=== PATIENT | male | born 1965 | race Two or more races ===

== ENCOUNTER 2020-05-20 15:16 | Inpatient (IN) | payer OTHER ==
[~2020-05-20] VITALS: Ht 165.1 cm; Wt 74.5 kg
[2020-05-20 15:54] LABS: Basophils # (auto) 0.1 10 ^3/uL (0-0.2); Basophils % (auto) 0.8 % (0.0-2.0); Eosinophils # (auto) 0.4 10 ^3/uL (0-0.8); Eosinophils % (auto) 3.6 % (0.0-7.0); Hematocrit 51.2 % (41.0-53.0); Hemoglobin 17.2 g/dL (13.5-17.5); Lymphocytes # (auto) 2.8 10 ^3/uL (0.4-5.4); Lymphocytes % (auto) 26.4 % (10.0-50.0); Mean Corpuscular Hemoglobin 29.8 pg (28.0-32.0); Mean Corpuscular Hgb Conc. 33.5 g/dL (32.0-36.0); Mean Corpuscular Volume 88.9 fL (80.0-100.0); Monocytes # (auto) 0.8 10 ^3/uL (0-1.3); Monocytes % (auto) 7.7 % (0.0-12.0); Neutrophils # (auto) 6.4 10 ^3/uL (1.6-8.6); Neutrophils % (auto) 61.5 % (37.0-80.0); Nucleated Red Blood Cells % 0.1 %; Platelet Count (auto) 240 10^3/uL (140-450); Red Blood Cells 5.76 10^6/uL (4.5-5.90); Red Cell Distribution Width 15.3 % (11.8-14.3); White Blood Cell 10.5 10^3/uL (4.4-10.8)
[2020-05-20 16:16] LABS: Albumin 4.2 g/dL (3.4-5.0); BUN/Creatinine Ratio 10.3; Bilirubin, Total 0.4 mg/dL (0.2-1.0); Total Protein 8.4 g/dL (6.4-8.2)
[2020-05-20 16:28] LABS: INR 0.97 (0.9-1.15); Partial Thromboplastin Time 27.9 sec (23.0-31.2)
[2020-05-20] MEDS ORDERED: NITROGLYCERIN 0.4 MG SL TAB SL PRN (18:00)
[2020-05-20] MEDS ORDERED: MORPHINE SULF INJ 2 MG/ML SYRINGE 1ML IV PRN (18:00)
[2020-05-20] MEDS ORDERED: SOD CHL 0.45% 1,000 ML IV ONE (18:00)
[2020-05-20] MEDS ORDERED: ONDANSETRON HCL 4 MG/2 ML VIAL IV PRN (18:00)
[2020-05-20 20:20] VITALS: BP 132/72
[2020-05-20 22:00] VITALS: BP 132/70
[2020-05-20] MEDS: PANTOPRAZOLE 40 MG/10 ML VIAL INJ IV SCH (22:39)
[2020-05-20 23:19] LABS: Urine WBC None Seen /hpf (0 - 3)
[2020-05-20 23:34] LABS: Urine Bacteria NONE SEEN /hpf (None Seen); Urine Blood Negative /uL (Negative); Urine Specific Gravity 1.009 (1.001-1.035)
[2020-05-21 05:00] VITALS: BP 123/69
[2020-05-21 07:33] LABS: Basophils # (auto) 0.1 10 ^3/uL (0-0.2); Basophils % (auto) 0.6 % (0.0-2.0); Eosinophils # (auto) 0.2 10 ^3/uL (0-0.8); Hematocrit 45.6 % (41.0-53.0); Hemoglobin 15.6 g/dL (13.5-17.5); Lymphocytes # (auto) 2.1 10 ^3/uL (0.4-5.4); Lymphocytes % (auto) 22.5 % (10.0-50.0); Mean Corpuscular Hgb Conc. 34.3 g/dL (32.0-36.0); Mean Corpuscular Volume 87.5 fL (80.0-100.0); Monocytes # (auto) 0.6 10 ^3/uL (0-1.3); Monocytes % (auto) 6.8 % (0.0-12.0); Neutrophils # (auto) 6.2 10 ^3/uL (1.6-8.6); Neutrophils % (auto) 68.1 % (37.0-80.0); Nucleated Red Blood Cells % 0.2 %; Platelet Count (auto) 204 10^3/uL (140-450); White Blood Cell 9.2 10^3/uL (4.4-10.8)
[2020-05-21 08:00] VITALS: BP 128/88
[2020-05-21] MEDS: PANTOPRAZOLE 40 MG/10 ML VIAL INJ IV SCH ×2 (09:41→22:34)
[2020-05-21 12:00] VITALS: BP 134/78
[2020-05-21 17:00] VITALS: BP 138/97
[2020-05-21] MEDS: HYDROcodone-ACET 10/325MG TAB PO PRN (19:58)
[2020-05-21 20:00] VITALS: BP 132/90
[2020-05-21 22:00] VITALS: BP 132/90
[2020-05-22] MEDS: HYDROcodone-ACET 10/325MG TAB PO PRN ×4 (04:20→21:15)
[2020-05-22 05:00] VITALS: BP 129/72
[2020-05-22 06:42] LABS: Basophils # (auto) 0.1 10 ^3/uL (0-0.2); Basophils % (auto) 0.6 % (0.0-2.0); Eosinophils # (auto) 0.4 10 ^3/uL (0-0.8); Eosinophils % (auto) 3.4 % (0.0-7.0); Hematocrit 48.3 % (41.0-53.0); Hemoglobin 16.5 g/dL (13.5-17.5); Lymphocytes # (auto) 2.1 10 ^3/uL (0.4-5.4); Lymphocytes % (auto) 19.9 % (10.0-50.0); Mean Corpuscular Hemoglobin 30.3 pg (28.0-32.0); Mean Corpuscular Hgb Conc. 34.3 g/dL (32.0-36.0); Mean Corpuscular Volume 88.4 fL (80.0-100.0); Monocytes # (auto) 0.8 10 ^3/uL (0-1.3); Monocytes % (auto) 7.8 % (0.0-12.0); Neutrophils # (auto) 7.1 10 ^3/uL (1.6-8.6); Neutrophils % (auto) 68.3 % (37.0-80.0); Nucleated Red Blood Cells % 0.2 %; Platelet Count (auto) 208 10^3/uL (140-450); Red Blood Cells 5.46 10^6/uL (4.5-5.90); White Blood Cell 10.4 10^3/uL (4.4-10.8)
[2020-05-22 09:00] VITALS: BP 138/83
[2020-05-22] MEDS: PANTOPRAZOLE 40 MG/10 ML VIAL INJ IV SCH ×2 (09:52→22:00)
[2020-05-22 12:55] VITALS: BP 131/95
[2020-05-22 17:10] VITALS: BP 138/91
[2020-05-22 20:00] VITALS: BP 139/90
[2020-05-22 22:00] VITALS: BP 139/90
[2020-05-23] MEDS: HYDROcodone-ACET 10/325MG TAB PO PRN ×5 (04:06→21:14)
[2020-05-23 05:00] VITALS: BP 125/71
[2020-05-23 09:12] VITALS: BP 145/90
[2020-05-23] MEDS: PANTOPRAZOLE 40 MG/10 ML VIAL INJ IV SCH ×2 (10:20→22:36)
[2020-05-23] MEDS ORDERED: GOLYTELY 4L KIT PO ONE (12:45)
[2020-05-23 13:00] VITALS: BP 142/102
[2020-05-23 16:55] VITALS: BP 157/87
[2020-05-23 22:00] VITALS: BP 126/80
[2020-05-24] MEDS: HYDROcodone-ACET 10/325MG TAB PO PRN ×5 (01:01→20:40)
[2020-05-24 05:00] VITALS: BP 106/65
[2020-05-24 07:16] LABS: Basophils # (auto) 0.1 10 ^3/uL (0-0.2); Basophils % (auto) 0.8 % (0.0-2.0); Eosinophils # (auto) 0.5 10 ^3/uL (0-0.8); Eosinophils % (auto) 5.4 % (0.0-7.0); Hematocrit 46.9 % (41.0-53.0); Hemoglobin 15.7 g/dL (13.5-17.5); Lymphocytes % (auto) 23.1 % (10.0-50.0); Mean Corpuscular Hemoglobin 29.7 pg (28.0-32.0); Mean Corpuscular Hgb Conc. 33.4 g/dL (32.0-36.0); Mean Corpuscular Volume 88.7 fL (80.0-100.0); Monocytes # (auto) 0.7 10 ^3/uL (0-1.3); Monocytes % (auto) 8.1 % (0.0-12.0); Neutrophils # (auto) 5.4 10 ^3/uL (1.6-8.6); Neutrophils % (auto) 62.6 % (37.0-80.0); Nucleated Red Blood Cells % 0.1 %; Platelet Count (auto) 192 10^3/uL (140-450); Red Blood Cells 5.29 10^6/uL (4.5-5.90); Red Cell Distribution Width 14.8 % (11.8-14.3); White Blood Cell 8.5 10^3/uL (4.4-10.8)
[2020-05-24 07:33] LABS: BUN/Creatinine Ratio 8.7; Calcium 8.1 mg/dL (8.5-10.1); Potassium 3.6 mmol/L (3.5-5.1)
[2020-05-24] MEDS ORDERED: FLUMAZENIL 0.1 MG/ML INJ 10ML MDV IV ONE (08:34)
[2020-05-24] MEDS ORDERED: NALOXONE HCL 0.4 MG/ML VIAL ONE (08:34)
[2020-05-24] MEDS ORDERED: SODIUM CHLORIDE LOCK 10 ML ONE (08:35)
[2020-05-24] MEDS ORDERED: diphenhdrAMINE HCL 50 MG/1 ML VL ONE (08:36)
[2020-05-24 09:00] VITALS: BP 149/87
[2020-05-24] MEDS: MIDAZOLAM HCL 5 MG/ML-1ML VIAL ONE ×3 (09:01→09:58)
[2020-05-24] MEDS: fentaNYL CITRATE 100 MCG/2 ML VL ONE ×3 (09:01→09:58)
[2020-05-24] MEDS: PANTOPRAZOLE 40 MG/10 ML VIAL INJ IV SCH ×2 (10:00→22:55)
[2020-05-24 13:00] VITALS: BP 122/82
[2020-05-24 17:00] VITALS: BP 146/91
[2020-05-24 22:00] VITALS: BP 129/80
[2020-05-24] MEDS ORDERED: SENNA 8.6 MG TAB PO SCH (22:00)
[2020-05-24] MEDS: DOCUSATE SOD 100 MG CAP PO SCH (22:55)
[2020-05-24] MEDS: HYDROCORTISONE 2.5% TOPICAL CREAM 30GM TUBE PR SCH (22:56)
[2020-05-25] MEDS: HYDROcodone-ACET 10/325MG TAB PO PRN ×3 (00:53→09:51)
[2020-05-25 05:00] VITALS: BP 142/97
[2020-05-25] MEDS: DOCUSATE SOD 100 MG CAP PO SCH ×2 (07:00→14:02)
[2020-05-25 08:15] VITALS: BP 143/85
[2020-05-25 08:47] VITALS: BP 143/85
[2020-05-25] MEDS: PANTOPRAZOLE 40 MG/10 ML VIAL INJ IV SCH (09:50)
[2020-05-25] MEDS ORDERED: MILK OF MAGNESIA 30ML SUSP PO SCH (10:00)
[2020-05-25 12:41] VITALS: BP 149/97
[2020-05-25] MEDS: HYDROCORTISONE 2.5% TOPICAL CREAM 30GM TUBE PR SCH (14:01)
[2020-05-25 16:44] VITALS: BP 154/99
[2020-05-25] MEDS ORDERED: HYD25RS PR (17:48)
[2020-05-25] MEDS ORDERED: DOCU100C8 PO (17:48)
[2020-05-25] MEDS ORDERED: HYDROCORTISONE ACET 25 MG RECTAL SUPP PR SCH (22:00)
== END 2020-05-25 20:30 | DRG 394 ==
LOC: EEVIPCON 15:16 → ER 15:16 → OVERFLOW 15:17 → WEST WING 20:09
PROVIDERS: ADMIT Internal Medicine; ATTEND Internal Medicine
PROC: 0DBP8ZX Excision of Rectum, Via Natural or Artificial Opening Endoscopic, Diagnostic (ICD-10-PCS; principal; 2020-05-24 08:45)
DX: K64.3 Fourth degree hemorrhoids (principal); K62.5 Hemorrhage of anus and rectum; K64.5 Perianal venous thrombosis; K59.00 Constipation, unspecified; K62.1 Rectal polyp; K64.4 Residual hemorrhoidal skin tags; Z20.828 Contact with and (suspected) exposure to other viral communicable diseases; K40.90 Unilateral inguinal hernia, without obstruction or gangrene, not specified as recurrent; E78.00 Pure hypercholesterolemia, unspecified; E78.5 Hyperlipidemia, unspecified; Z88.5 Allergy status to narcotic agent; Z79.899 Other long term (current) drug therapy
CPT/HCPCS: 36415; 45380; 71045; 74176; 80048; 80053; 81001; 83690; 85025; 85610; 85730; 86850; 86900; 86901; 87426; C9113; G0378; J2250; J2405